=== PATIENT | male | born 1955 | race Caucasian/White ===

== ENCOUNTER 2018-07-09 14:43 | Emergency (ER) | payer OTHER ==
[~2018-07-09] VITALS: Ht 180.3 cm; Wt 104.3 kg
[2018-07-09] MEDS ORDERED: SIMVASTATIN20 MG (15:12)
[2018-07-09] MEDS ORDERED: FORTAMET1000 MG (15:12)
[2018-07-09] MEDS ORDERED: ENALAPRIL MALE2.5 MG (15:12)
[2018-07-09] MEDS ORDERED: GLIPIZIDE5 GM (15:13)
[2018-07-09] MEDS ORDERED: LANTUS SOL100 UNIT/1 (15:13)
== END 2018-07-09 17:30 | disposition home or self-care (01) ==
LOC: ER 14:43
DX: K57.90 Diverticulosis of intestine, part unspecified, without perforation or abscess without bleeding (principal); N21.9 Calculus of lower urinary tract, unspecified